=== PATIENT | female | born 1995 | race Caucasian/White ===

== ENCOUNTER 2018-12-16 02:11 | Emergency (ER) | payer SELFPAY ==
[~2018-12-16] VITALS: Ht 162.6 cm; Wt 48.4 kg
[2018-12-16 02:18] VITALS: BP 115/70; PULSE 98; RESP 18; Ht 162.6 cm; Wt 48.4 kg
[2018-12-16] MEDS ORDERED: HYDR-4011 PO (04:58)
[2018-12-16] MEDS ORDERED: HYDROCODONE/APAP (5/325) TAB PO ONE (05:00)
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
== END 2018-12-16 05:24 | disposition home or self-care (01) ==
LOC: FTE 02:11
DX: J34.89 Other specified disorders of nose and nasal sinuses (principal)
CPT/HCPCS: 81025; 99283